=== PATIENT | female | born 1960 | race Caucasian/White ===

== ENCOUNTER 2018-10-11 19:42 | Inpatient (IN) ==
[2018-10-11] MEDS ORDERED: CARDIZEM ONE (19:45)
[2018-10-11] MEDS ORDERED: CARDIZEM IV ONE (19:48)
[2018-10-11] MEDS ORDERED: NS 1,000 ML IV ONE ×2 (20:09→22:59)
[2018-10-11] MEDS ORDERED: NS 1,000 ML ONE (20:11)
[2018-10-11 20:31] LABS: BASO# 0.01 X1000 (0.0-0.2); BASO% 0.1 % (0.0-0.8); EOS# 0.08 X1000 (0.0-0.7); EOS% 0.7 % (0.0-10.0); HEMATOCRIT 52.5 % (37.0-47.0); HEMOGLOBIN 18.3 g/dL (12.0-16.0); IMM GRAN# 0.02 X1000 (0.0-0.04); IMM GRAN% 0.2 % (0.0-0.5); LYMPH# 1.19 X1000 (1.2-3.4); LYMPH% 10.3 % (20.5-51.1); MCH 33.4 PG (27-31); MCHC 34.9 g/dL (33-37); MCV 95.8 FL (81-99); MONO# 0.57 X1000 (0.11-0.59); MONO% 4.9 % (1.7-9.3); MPV 9.2 FL (7.4-10.4); NEUT# 9.66 X1000 (1.4-6.5); NEUT% 83.8 % (42.2-75.2); PLT 385 X1000 (130-400); RBC 5.48 XMIL (4.2-5.4); RDW 12.8 % (11.5-14.5); WBC 11.53 X1000 (4.8-10.8)
[2018-10-11] MEDS ORDERED: DEMEROL IV ONE (20:38)
[2018-10-11] MEDS ORDERED: PHENERGAN IV ONE (20:38)
[2018-10-11] MEDS ORDERED: SODIUM CHLORIDE 0.9% INJ ONE (20:38)
--- NOTE | 2018-10-11 20:52 | EKG Report ---
Test Performed on : 10/11/2018 7:44:46 PM Test Reason : pain Blood Pressure : / mmHG Vent. Rate : 149 BPM Atrial Rate : 149 BPM P-R Int : 000 ms QRS Dur : 088 ms QT Int : 344 ms P-R-T Axes : 000 102 021 degrees QTc Int : 541 ms Atrial fibrillation. with rapid ventricular response. Rightward axis Nonspecific ST and T wave abnormality Abnormal ECG No previous ECGs available Unconfirmed Result
--- NOTE | 2018-10-11 21:10 | Diag Imaging Result Doc PS360 ---
EXAM: CHEST-PORTABLE HISTORY: sob TECHNIQUE: Portable chest single view COMPARISON: None. FINDINGS: The lungs are well expanded. The heart is not enlarged. Sternal wires are present. The vessels are not distended. There are no infiltrates. No effusion identified. Possible free air beneath the diaphragm versus air within the colon and stomach beneath the diaphragm. IMPRESSION: Possible free air beneath the diaphragm. A CT abdomen and pelvis is recommended. Electronically signed by Dipak David 10/11/2018 9:08 PM
[2018-10-11] MEDS ORDERED: KEFZOL 1 GM/D5W 1 GM/50 ML IVPB IV ONE (21:25)
[2018-10-11 21:46] LABS: ALBUMIN 2.6 g/dL (3.5-5.0); CALCIUM 8.2 mg/dL (8.8-10.2); POTASSIUM 3.2 mmol/L (3.5-5.1); TOTAL BILIRUBIN 0.2 mg/dL (0.20-1.00); TOTAL PROTEIN 6.3 g/dL (6.3-8.3)
[2018-10-11 23:15] LABS: BILIRUBIN URINE NEGATIVE (NEGATIVE); BLOOD URINE TRACE (NEGATIVE); CLARITY SL. CLOUDY (CLEAR); COLOR YELLOW; GLUCOSE URINE NEGATIVE (NEGATIVE); KETONE URINE TRACE mg/dL (NEGATIVE); LEUKOCYTES URINE 2+ (NEGATIVE); NITRITE URINE NEGATIVE (NEGATIVE); PROTEIN URINE TRACE mg/dL (NEGATIVE); SP GRAVITY URINE 1.015; UROBILINOGEN URINE NORMAL
[2018-10-11 23:17] LABS: URINE BACTERIA 4+ /HFP; URINE EPITHELIAL CELLS >10 /HPF (<10); URINE RBC <10 /HPF (<10); URINE SOURCE CATH
[2018-10-12] MEDS ORDERED: HURRICAINE SPRAY (DOSE) ONE (00:03)
[2018-10-12] MEDS ORDERED: ROBINUL ONE (00:06)
[2018-10-12] MEDS ORDERED: QUELICIN (DOSE) ONE (00:06)
[2018-10-12] MEDS ORDERED: SODIUM CHLORIDE 0.9% 10 ML ONE ×3 (00:06→02:42)
[2018-10-12] MEDS ORDERED: XYLOCAINE-MPF 2% ONE (00:06)
[2018-10-12] MEDS ORDERED: NORCURON ONE ×2 (00:06→02:48)
[2018-10-12] MEDS ORDERED: NEO-SYNEPHRINE ONE (00:06)
[2018-10-12] MEDS ORDERED: STERILE WATER INJ. ONE ×2 (00:06→02:48)
[2018-10-12] MEDS ORDERED: NS 50 ML ONE (00:08)
[2018-10-12] MEDS ORDERED: MEFOXIN ONE (00:08)
[2018-10-12] MEDS ORDERED: FENTANYL ONE (00:10)
[2018-10-12] MEDS ORDERED: DIPRIVAN 1% ONE (00:15)
[2018-10-12] MEDS: MEFOXIN 2 GM/NS 2 GM/50 ML IVPB IV SCH ×6 (00:20→23:48)
--- NOTE | 2018-10-12 00:32 | PROVIDER DOCUMENTATION ---
This chart was entered by Jayde Street Scribe, acting as scribe for Humza Riggs MD. HPI-Cardiac General - General Stated Complaint: CHEST PAIN Time Seen by Provider: 10/11/18 19:44 Source: patient Allergies/Adverse Reactions: Patient Allergies Allergy/AdvReac Type Severity Reaction Status Date / Time Penicillins Allergy Unknown Verified 09/30/18 22:24 Home Medications: Home Medication List Medication Instructions Recorded Confirmed Last Taken Type Hydrocodone/APAP 5 mg/325 mg 1 ea PO Q6H PRN PRN 5 Days #12 tab 10/01/18 Unknown Rx [[place]-5] - History of Present Illness-Cardiac Nature of Presenting Problem: Patient is a 58 year old female who presents to the ED via EMS with palpitations. Patient also states chest pain that radiates to lower abdomen. Patient states symptoms started today around 1000. Patient denies nausea and vomiting. Patient is covered in urine and stool on arrival to ED. Location: reports: other (generalized upper chest) Quality of Pain: reports: aching Severity in ED: mild Onset/Duration: this morning (1000) Timing: still present Context/Activities at Onset: reports: light activity Modifying Factors: improves with: nothing Palpitation Quality: fast/pounding heart beat (fast) History of arrythmia: reports: none Recent use of:: reports: no stimulants Aspirin Treatment Today: reports: 81 mg x 1 Associated Symptoms: reports: abdominal pain, shortness of breath Similar Symptoms Previously?: No Recently Seen Here or By Another Healthcare Provider: No Review of Systems - Adult - REVIEW OF SYSTEMS - ADULT Constitutional: reports: no symptoms reported Eyes: reports: no symptoms reported Ears, Nose, Mouth & Throat: reports: no symptoms reported Cardiovascular: reports: chest pain, palpitations. denies: heart murmur Respiratory: reports: shortness of breath. denies: cough, wheezing Gastrointestinal: reports: abdominal pain (generalized). denies: diarrhea, nausea, vomiting Genitourinary: reports: no symptoms reported Musculoskeletal: reports: no symptoms reported Integumentary: reports: no symptoms reported Neurological: reports: no symptoms reported Psychiatric: reports: no symptoms reported Endocrine: reports: no symptoms reported Hematologic/Lymphatic: reports: no symptoms reported Allergic/Immunologic: reports: no symptoms reported All Other Systems: Reviewed and Negative Past History - Adult - PAST MEDICAL HISTORY-ADULT Review of Records: reports: Nursing Assessment Review, Medications Reviewed, Social history reviewed & non-contributory. Major Childhood Illnesses: reports: denies history Cardiovascular: reports: denies history Respiratory: reports: denies history Gastrointestinal: reports: denies history Obstetrical/Gynecological: reports: denies history Genitourinary: reports: denies history Musculoskeletal: reports: denies history Neurological: reports: denies history Psychiatric: reports: depression Endocrine/Immune: reports: denies history Other Conditions: reports: denies history - PRIOR SURGERIES/PROCEDURES Surgical/Procedure History: reports: reviewed, not pertinent - IMMUNIZATION STATUS Childhood Immunizations: See Nurse Assessment Flu Vaccine: See Nurse Assessment - FAMILY HISTORY Family History: reviewed, not pertinent - SOCIAL HISTORY Smoking: cigarettes (former) Substance Use: denies Living Situation: family Physical Exam-General - PHYSICAL EXAM-ADULT Initial Vital Signs Reviewed: Yes - CONSTITUTIONAL General Appearance: mild distress, other (disheveled) - NECK Neck: non-tender, normal inspection - RESPIRATORY Respiratory: chest non-tender, lungs clear, normal breath sounds - CARDIOVASCULAR Cardiovascular: tachycardia - GASTROINTESTINAL (ABDOMEN) Abdominal Exam: soft, tenderness (generalized) - MUSCULOSKELETAL Extremity: normal inspection - SKIN Integumentary: normal color, normal turgor, warm/dry - NEUROLOGIC Neurologic: grossly normal - PSYCHIATRIC Psych/Mental Status: oriented x 3, disheveled Progress - PLAN OF CARE/RESULTS Progress/Plan/Lab Results: Vital Signs - 8 hr 10/11/18 19:50 Temperature 98.1 F Pulse Rate 143 H Respiratory Rate 28 H Blood Pressure 103/86 O2 Sat by Pulse Oximetry 100 Laboratory Results - last 24 hr 10/11/18 10/11/18 10/11/18 19:43 20:54 20:54 WBC 11.53 H RBC 5.48 H Hgb 18.3 H Hct 52.5 H MCV 95.8 MCH 33.4 H MCHC 34.9 RDW Std Deviation 12.8 Plt Count 385 MPV 9.2 Immature Gran % (Auto) 0.2 Neut % (Auto) 83.8 H Lymph % (Auto) 10.3 L Mcintosh % (Auto) 4.9 Eos % (Auto) 0.7 Baso % (Auto) 0.1 Immature Gran # (Auto) 0.02 Neut # (Auto) 9.66 H Lymph # (Auto) 1.19 L Mcintosh # (Auto) 0.57 Eos # (Auto) 0.08 Baso # (Auto) 0.01 Sodium 136 Potassium 3.2 L Chloride 100 Carbon Dioxide 12 L Anion Gap 24 BUN 12 Creatinine 1.0 H Estimated GFR/1.73 m2 57 BUN/Creatinine Ratio 12 Glucose 271 H Calculated Osmolality 281 Calcium 8.2 L Total Bilirubin 0.20 AST 13 ALT 7 L Alkaline Phosphatase 223 H Creatine Kinase 37 Troponin T < 0.010 Total Protein 6.3 Albumin 2.6 L Globulin 4.0 Albumin/Globulin Ratio 1.0 Urine Source Urine Color Urine Clarity Urine pH Ur Specific Honeydew Urine Protein Urine Ketones Urine Blood Urine Nitrite Urine Bilirubin Urine Urobilinogen Urine Microscopic RBC Urine WBC Urine Microscopic WBC Ur Epithelial Cells Urine Bacteria Urine Glucose 10/11/18 22:40 WBC RBC Hgb Hct MCV MCH MCHC RDW Std Deviation Plt Count MPV Immature Gran % (Auto) Neut % (Auto) Lymph % (Auto) Mcintosh % (Auto) Eos % (Auto) Baso % (Auto) Immature Gran # (Auto) Neut # (Auto) Lymph # (Auto) Mcintosh # (Auto) Eos # (Auto) Baso # (Auto) Sodium Potassium Chloride Carbon Dioxide Anion Gap BUN Creatinine Estimated GFR/1.73 m2 BUN/Creatinine Ratio Glucose Calculated Osmolality Calcium Total Bilirubin AST ALT Alkaline Phosphatase Creatine Kinase Troponin T Total Protein Albumin Globulin Albumin/Globulin Ratio Urine Source CATH Urine Color YELLOW Urine Clarity SL. CLOUDY A Urine pH 5.0 Ur Specific Honeydew 1.015 Urine Protein TRACE A Urine Ketones TRACE Urine Blood TRACE Urine Nitrite NEGATIVE Urine Bilirubin NEGATIVE Urine Urobilinogen NORMAL Urine Microscopic RBC <10 Urine WBC 2+ A Urine Microscopic WBC 10-20 A Ur Epithelial Cells >10 A Urine Bacteria 4+ Urine Glucose NEGATIVE Orders Category Date Time Status NPO Diet 10/11/18 23:41 Active CHEST-PORTABLE [RAD] Stat Exams 10/11/18 20:[address] ABD/PELVIS W/IV CONT ONLY [CT] Stat Exams 10/11/18 21:22 Taken BLOOD CULTURE [BLDCUL] Stat Lab 10/11/18 20:54 Results CBC WITH ELECTRONIC DIFF [HEME] Stat Lab 10/11/18 19:43 Completed CK PROFILE [SP CHEM] Stat Lab 10/11/18 20:54 Completed COMPREHENSIVE METABOLIC PANEL [CHEM] Stat Lab 10/11/18 20:54 Completed TROPONIN T Stat Lab 10/11/18 20:54 Completed URINE CULTURE [RM] Routine Lab 10/11/18 23:17 Ordered ua [URINALYSIS PL W/POSS RFLX CULT] [URINALYSIS] Stat Lab 10/11/18 22:40 Completed 0.9% Sodium Chloride Inj [Ns] 1,000 ml Med 10/11/18 20:11 Discontinued .ROUTE As Directed 0.9% Sodium Chloride Inj [Ns] 1,000 ml Med 10/11/18 20:09 Discontinued IV 999 mls/hr 0.9% Sodium Chloride Inj [Ns] 1,000 ml Med 10/11/18 22:59 Active IV 999 mls/hr CefOXITIN 2 GM/NS [Mefoxin 2 gm/Ns] Med 10/11/18 23:45 Ordered 2 gm in 50 ml IV Q6H Cefazolin 1 gm/D5w [Kefzol 1 gm/D5w] Med 10/11/18 21:25 Discontinued 1 gm in 50 ml IV NOW Diltiazem [Cardizem] Med 10/11/18 19:48 Discontinued 10 mg IV NOW ONE Diltiazem [Cardizem] Med 10/11/18 19:45 Discontinued 25 mg .ROUTE .STK-MED ONE Meperidine [Demerol] Med 10/11/18 20:38 Discontinued 25 mg IV NOW ONE Promethazine [Phenergan] Med 10/11/18 20:38 Discontinued 12.5 mg IV NOW ONE Sodium Chloride 0.9% Med 10/11/18 20:38 Discontinued 10 ml INJ NOW ONE EKG [EKG] Routine Ther 10/11/18 20:10 Draft Transfer/Admit Order [TRANSFER] Routine Transfer 10/11/18 23:43 Ordered Result Diagrams: 10/11/18 19:43 10/11/18 20:54 - EKG 1 Time of EKG reading by physician:: 19:44 EKG Read and Signed by:: Humza Riggs EKG Interpretation (*Must complete 3 of following elements*): Abnormal Rate: 149 Rhythm: atrial fibrillation with rapid ventricular response Comments: rightward axis; nonspecific ST and T wave abnormality. - XRAY 1 XRAY Study: Chest Impression: See EMR Report (EXAM: CHEST-PORTABLE HISTORY: sob TECHNIQUE: Portable chest single view COMPARISON: None. FINDINGS: The lungs are well expanded. The heart is not enlarged. Sternal wires are present. The vessels are not distended. There are no infiltrates. No effusion identified. Possible free air beneath the diaphragm versus air within the colon and stomach beneath the diaphragm. IMPRESSION: Possible free air beneath the diaphragm. A CT abdomen and pelvis is recommended. Electronically signed by Dipak David 10/11/2018 9:08 PM 10/11/182107 Interpreting Physician: Dipak David MD Dictated Date/Time: 10/11/182106 cc: Humza Riggs MD; None,PCP) - CT/MRI 1 CT Study: Abdomen, Pelvis Impression: See EMR Report (large pneumoperitoneum. free fluid containing oral contrast. findings compatible with acute bowel perforation. bibasilar pulmonary edema or atelectasis. infiltrate not excluded. trace left pleural effusion. low density renal lesions. 18 x 15 mm left adrenal nodule. ([facility])) - CONSULTS/PCP/HOSPITALIST Notification #1 *Consult/PCP/Hospitalist*: [facility] Time Discussed: 22:51 Reason/Comments: Dr. Riggs consulted with [facility] radiologist about patient's CT. #2 Consult: Dr. Teixeira Time Discussed: 22:55 Reason/Comments: Dr. Riggs consulted with Dr. Teixeira about patient. Consult Disposition: Will see in ED #3 Consult: Dr. Chilel Time Discussed: 23:41 Reason/Comments: Dr. Riggs consulted with Dr. Chilel about patient. Consult Disposition: Admit Departure - Departure Date of Disposition Decision: 10/11/18 Time of Disposition Decision: 23:42 DIAGNOSIS: Perforated bowel Disposition: ADMITTED INPATIENT 09 Certified Medical Emergency: Emergent Condition: Stable Referrals and Follow-Ups: None,PCP [Primary Care Provider] - - Critical Care Note This patient required my direct & personal management of CC.: No Attestation - Physician/ [facility] Attestation The physician spent face to face time with patient:: Yes Advanced Practice Provider documentation review:: Supervising physician onsite and consulted in the evaluation and care of this patient. The physician did have a face to face encounter with the patient. This chart was documented by the indicated scribe, (Jayde Street Scribe) and accurately reflects the services I performed and decisions made by me, Humza Riggs MD, as attested by the provider's signature.
[2018-10-12] MEDS ORDERED: ZOFRAN IV PRN (01:56)
[2018-10-12] MEDS ORDERED: SODIUM CHLORIDE 0.9% INJ SCH (02:15)
[2018-10-12] MEDS ORDERED: VERSED ONE ×2 (02:46→02:47)
[2018-10-12] MEDS ORDERED: DIPRIVAN 1% 0 MG/0 ML BOTTLE ONE (02:57)
[2018-10-12] MEDS ORDERED: PROTONIX IV SCH (03:00)
[2018-10-12] MEDS ORDERED: NS + KCL 20 MEQ 1,000 ML IV SCH (04:30)
[2018-10-12] MEDS: DIPRIVAN 1% 1,000 MG/100 ML BOTTLE IV SCH ×4 (04:37→21:19)
[2018-10-12] MEDS: DILAUDID IV PRN ×3 (04:41→21:16)
[2018-10-12] MEDS ORDERED: VANCOMYCIN IV PER PHARMACY MISC SCH (05:00)
[2018-10-12] MEDS ORDERED: VANCOMYCIN 2,000 MG in NS 500 ML IV ONE (05:00)
[2018-10-12] MEDS: HUMALOG SUBQ SCH ×5 (05:10→20:57)
[2018-10-12 05:11] LABS: ALLEN TEST YES; BE -12.5 mmoll (-3.0-3.0); BLOOD TYPE ARTERIAL; HCO3-(ACT) 15.2 mmoll (20.0-26.0); METHB 1.3 % (0.0-1.5); O2(CT) 23.9 mL/dL (15.0-23.0); O2HB 97.2 % (95.0-99.0); PCO2(98.6) 47 mmHg (35-45); PO2(98.6) 218 mmHg (60-100); SAMPLE BLOOD; SAO2 99.6 % (95.0-100.0); SRATE 14 BPM; THB 17.2 g/dL (11.5-17.4); TVOL 550 mL
[2018-10-12 05:13] LABS: MODALITY VENTILATOR; pH(98.6) 7.15 (7.35-7.45)
[2018-10-12 05:22] LABS: BASO# 0.01 X1000 (0.0-0.2); BASO% 0.1 % (0.0-0.8); EOS# 0.01 X1000 (0.0-0.7); EOS% 0.1 % (0.0-10.0); HEMATOCRIT 48.2 % (37.0-47.0); HEMOGLOBIN 16.6 g/dL (12.0-16.0); IMM GRAN# 0.03 X1000 (0.0-0.04); IMM GRAN% 0.2 % (0.0-0.5); LYMPH# 1.63 X1000 (1.2-3.4); LYMPH% 12.6 % (20.5-51.1); MCH 33.5 PG (27-31); MCHC 34.4 g/dL (33-37); MCV 97.4 FL (81-99); MONO# 0.81 X1000 (0.11-0.59); MONO% 6.3 % (1.7-9.3); MPV 9.2 FL (7.4-10.4); NEUT# 10.42 X1000 (1.4-6.5); NEUT% 80.7 % (42.2-75.2); PLT 227 X1000 (130-400); RBC 4.95 XMIL (4.2-5.4); RDW 12.8 % (11.5-14.5); WBC 12.91 X1000 (4.8-10.8)
[2018-10-12] MEDS ORDERED: NEO-SYNEPHRINE 50 MG in NS 250 ML IV SCH (05:30)
[2018-10-12 05:32] LABS: INR 1.25; PROTIME 16.6 Seconds (11.0-16.0)
[2018-10-12 05:33] LABS: PTT 32.4 Seconds (22.3-41.8)
--- NOTE | 2018-10-12 05:34 | GENERAL SURGERY CONSULTATION ---
DATE: 10/11/2018 REQUESTING PHYSICIAN: Emergency department. REASON FOR CONSULTATION: Consult concerning free air. HISTORY OF PRESENT ILLNESS: A 58-year-old female who presents with less than a 24-hour history of sudden onset abdominal pain. She states she has never had symptoms like this before but it started today, sudden onset. She does not have a history of acid reflux. She came to the emergency department. Had a CT scan that showed free air and a ventral hernia. She is a septic- like picture. I was asked to weigh an opinion. She is still hurting in her abdomen. PAST MEDICAL HISTORY: Includes hypertension and depression. PAST SURGICAL HISTORY: Includes hysterectomy, oophorectomy, salpingectomy, atrial septal defect repair, ankle surgery. FAMILY HISTORY: Reviewed with patient and noncontributory. SOCIAL HISTORY: Current smoker. MEDICATIONS: Currently being reviewed and compiled. ALLERGIES: Penicillin. REVIEW OF SYSTEMS: A full 10 point review of systems was obtained and negative except as specified in the HPI. PHYSICAL EXAMINATION: Vital Signs: The patient is currently afebrile. Temperature 98.1 degrees, pulse is in the 130s, respiratory rate is 28, blood pressure 103/86. General Examination: Uncomfortable female. Looks acutely sick. HEENT: Normocephalic, atraumatic. Pupils equal, round, reactive to light. Mucous membranes moist. Oropharynx benign. Neck: Supple. Trachea midline. Cardiovascular: Tachycardic. Lungs: Some coarse sounds noted. Abdomen: Peritoneal signs noted in her midline. Positive rebound. Extremities: Moves all extremities. Neurologic: Grossly intact. Skin: No signs of jaundice. Vascular: All extremities perfused. LABORATORY: White blood cell count is 11, hematocrit 52.5, platelet count 385,000. Remainder of labs reviewed. CT scan independently reviewed and radiology report reviewed. She does have what looks like free air with perforation. ASSESSMENT AND PLAN: A 58-year-old, female with free air, pneumoperitoneum, and concern for perforation. 1. Perforation. At this time, given the context of her abdominal pain of sudden onset, a CT scan with findings of concern for perforated ulcer. She does have a ventral hernia and some signs of diverticulitis, although the exact etiology is unclear. Discussed with patient the need to be admitted and transferred over to the hospital for emergent surgery. Discussed with her the risks, benefits, and alternatives of the surgery. Risks including but not limited to risk of bleeding, risk of anesthesia, risk of infection, risk of bowel injury, risk of bowel resection, risk of leak at the anastomosis, risk of ostomy all discussed. We will need to take her across down emergently. We will call the operating room crew. She likely does fit a sepsis like picture, and she is being resuscitated and started on antibiotics. 2. Multiple medical comorbidities, currently to be managed by the hospitalist service. 3. Sepsis. Please see above. cc: JuanA Teixeira MD
[2018-10-12] MEDS ORDERED: SOLU-CORTEF IV ONE (05:43)
[2018-10-12] MEDS ORDERED: LEVOPHED 8 MG in D5 1/2 NS 250 ML IV SCH (05:45)
[2018-10-12] MEDS ORDERED: SODIUM BICARBONATE 8.4% IV ONE (05:46)
--- NOTE | 2018-10-12 05:58 | OPERATIVE NOTE ---
PROCEDURE DATE: 10/12/2018 PREOPERATIVE DIAGNOSES: 1. Perforated hollow viscus. 2. Incarcerated incisional ventral hernia. POSTOPERATIVE DIAGNOSES: 1. Perforated gastric ulcer. 2. Incarcerated incisional ventral hernia. PROCEDURES PERFORMED: 1. Exploratory laparotomy. 2. Open George patch for perforated gastric ulcer. 3. Open primary repair of incarcerated incisional ventral hernia. SURGEON: Juan A Teixeira MD. ORACLE APPLICATION ARCHITECT: None. ANESTHESIA: General endotracheal. INTRAOPERATIVE FINDINGS: Perforated ulcer near the lesser curvature near the pylorus of the stomach. Multiple small hernia defects containing incarcerated omentum in a previous incision. COMPLICATIONS: None at the time of this dictation. ESTIMATED BLOOD LOSS: 10 mL. SPECIMEN REMOVED: None. DRAINS: A 10 flat drain. BRIEF HISTORY: The patient is a 58-year-old female presenting with sudden onset of pain. She had a CT scan that showed free air. She had peritoneal signs and was septic so that she would benefit from exploratory laparotomy. The risks, benefits, and alternatives were discussed. All questions were answered. DESCRIPTION OF PROCEDURE: After informed consent was obtained, the patient was brought to the operative theater, transferred to the operative table and placed in the supine position. General endotracheal anesthesia was then performed without complication. A formal time- out was then performed confirming the patient, date, and procedure with all in agreement. At that time attention was given to the abdomen. A standard midline incision was made through which we entered the abdomen. Upon entering the abdomen we released a significant amount of air and purulence from a perforated viscus. We irrigated this out. We were able to identify the perforated gastric ulcer, it did not look like malignancy. To be able to facilitate closure with a George patch we did have to open her incision entirely to free up the omentum which was incarcerated in her incisional ventral hernia. We had to take it all the way down the midline. Once we had freed up sufficiently, we brought down a piece of omentum that was well-vascularized to the perforated ulcer and performed a George patch with 3-0 silk. There was good closure over the area. Once we had done this there was no more contamination. We irrigated out the abdomen. Once we had freed up everything around the incisional hernia and reduced the incarcerated contents , we elected to close it. Given the contamination we elected to close it primarily, she had very tenuous fascia, but we did the best we could. We closed it with interrupted #1 Vicryl the entirety of the length. We then irrigated out the incision. We did place a ELSA drain tunneled from the right upper quadrant to the perforation and secured it in place. The skin was closed with stephania. The patient remained critical and septic and was transferred to the ICU. It should be noted that the sigmoid colon looked and felt normal during the procedure. cc: MD LIZANDRO Reynoso
[2018-10-12] MEDS: PROTONIX IV SCH ×2 (06:04→18:16)
[2018-10-12 06:11] LABS: LYMPHS 13 % (21-51); MONO 4 % (1-9); SEGS 83 % (42-75)
--- NOTE | 2018-10-12 06:14 | Diag Imaging Result Doc PS360 ---
EXAM: CHEST-PORTABLE HISTORY: et tube placement TECHNIQUE: Normal chest single view COMPARISON: 8:37 PM on 10/11/2018 FINDINGS: The lungs are well expanded. An endotracheal tube has been placed since the prior exam. The tip lies approximately 2 cm above the pia. The heart is not enlarged. Sternal wires are present. The vessels are not distended. Questionable midlung infiltrates.. No effusion identified. IMPRESSION: Endotracheal tube in good position. Possible developing mid lung infiltrates. Electronically signed by Dipak David 10/12/2018 6:11 AM
[2018-10-12 06:46] LABS: AGAP 20; ALB/GLOB RATIO 0.4; ALBUMIN 1.7 g/dL (3.5-5.0); ALKALINE PHOSPHATASE 155 U/L (32-104); BUN 14 mg/dL (8-22); CALCIUM 7.6 mg/dL (8.8-10.2); CHLORIDE 103 mmol/L (98-107); CK PROFILE 45 U/L (24-173); COSMO 274; CREATININE 0.9 mg/dL (0.5-0.9); ESTIMATED GFR > 60; GLUCOSE 155 mg/dL (70-104); GOT 17 U/L (10-30); GPT 7 U/L (10-36); MAGNESIUM 1.4 mg/dL (1.5-2.7); POTASSIUM 4.5 mmol/L (3.5-5.1); SODIUM 135 mmol/L (136-145); TCO2 12 mmol/L (25-35); TOTAL PROTEIN 6.1 g/dL (6.3-8.3)
--- NOTE | 2018-10-12 07:29 | HISTORY AND PHYSICAL ---
HISTORY: Ms. Munson is a 58-year-old, female, who presented to the ER at [facility] at 1942 on 10/11/2018 with complaints of palpations and chest pain radiating into her abdomen that she reports started around 10 o'clock earlier in the day. She denies any nausea or vomiting. She was noted upon arrival to be awake, alert and oriented x3. Though they did note that the patient was cool, pale, diaphoretic, and her skin was modeled as well. ER documentation also note that she arrived to the ER unkempt with extremely poor hygiene. The patient was noted to have an old hospital gown on that was covered in a brown substance which is likely stool. She was also noted to be covered in stool and urine. Upon evaluation at [facility] they did perform CBC which showed some mild leukocytosis with a white blood cell count of 11,530. Hemoglobin and hematocrit were actually slightly elevated. Potassium was slightly low at 3.2. Creatinine was 1.0. GFR 57. Glucose was 271. Troponin was less than 0.01. CK was 37. They did perform a chest x-ray which did show possible free air beneath the diaphragm. Given this they did perform a CT of abdomen and pelvis with IV contrast which showed a large pneumoperitoneum with free fluid containing oral contrast. Findings were compatible with acute bowel perforation. There was also noted some bibasilar pulmonary edema or atelectasis. Infiltrate could not be excluded. There was also trace left pleural effusion noted. She was also noted to have arrived with initial vital signs of temperature 98.1 degrees Fahrenheit, heart rate 143, respirations 28, blood pressure 103/86. Pulse oximetry 100% on room air. EKG performed did show atrial fibrillation with rapid ventricular response. She did receive 10 mg of Cardizem IV push. Dr. Teixeira did see the patient in the ER at [facility]. She was transferred to [facility] for admission and to go straight to surgery upon arrival. I did briefly get to speak to the patient in [facility]. She was cool, pale, diaphoretic. She was modeled from approximately the waist down. The patient was in a lot of pain. She was tachypneic as well. I was able to get some pertinent history of present illness and past medical and surgical history, though due to the patient's current condition she did state that she was unable to talk anymore. This will have to be obtained at a later time. She did state that she does live with a friend. He was attempting to help take care of her, though she was unable to care for herself and he was not able to provide the care that she needed. The patient did look unkempt. She had stool noted on her bilateral legs and feet. She was seen in the ER at [facility] on 10/01/2018 for a fall out of her bed with left ankle pain. She did have a displaced left trimalleolar fracture that Dr. Ramachandran did see her in the ER for. He reduced it, splinted it, and she was supposed to follow up with him outpatient though I do not think at this time that that has been done. She was noted at that time to have a stage II pressure ulcer on her sacral area and buttocks as well. Though the patient states that since she went home due to her fracture and not feeling well that she has not been able to take care of herself. She still does have a left splint noted to her left lower extremity that will have to be re-splinted due to the splinting material has been contaminated with stool. We will obtain x-ray of this after she comes out of surgery later on in the morning. REVIEW OF SYSTEMS: Unfortunately at this time a complete review of systems was unable to be performed with the patient due to her current condition. Though as previous mentioned she was reporting chest pain that was radiating into her abdomen as well as palpitations. She denied any nausea or vomiting. PAST MEDICAL HISTORY: 1. Hypertension. 2. Diabetes. 3. Depression. 4. CVA though at this time were are unsure if there are any residual deficits. PAST SURGICAL HISTORY: 1. Previous left ankle surgery. 2. Atrial septal surgical repair. 3. Cholecystectomy. 4. The patient reports that she had a few exploratory surgeries for gynecological issues. 5. Left carotid endarterectomy. SOCIAL HISTORY: The patient does smoke half a pack per day. She denied any illicit drug use. She only reported very rare occasional alcohol use. As previously mentioned, she does live with a friend. Though at this time it does appear the patient is not able to take care of herself, and her friend does have some medical issues himself and has been trying to help her as much as he can. Though I suspect the patient will need rehab placement or home health at the least upon discharge. Also Principal Software Engineer may need to get involved for evaluation of the patient's residence. It was also noted that at ER [facility] they did mentioned that she had bed bugs noted on her person. FAMILY HISTORY: Due to the patient's condition this was unable to be obtained at this time. ALLERGIES: Penicillin. HOME MEDICATIONS: Unfortunately, due to the patient's condition we are unable to reconcile her home medications at this time. Though once the patient's condition has improved and she has been extubated, we will try to obtain this or possibly get any family members or friends to try to get her medication bottles or obtain her pharmacy to see if we can obtain a list. DIAGNOSTIC DATA/LABORATORY RESULTS: 1. White blood cell count 11,530, hemoglobin 18.3, hematocrit 52.5, platelet count 385,000. 2. Sodium 136, potassium 3.2, chloride 110, bicarb 12. Anion gap 24. BUN 12, creatinine 1.0. GFR 57. Glucose 271. Calcium 8.2. 3. Liver function tests are within normal limits except for alkaline phosphatase elevated at 223, CK 37, troponin less than 0.01. Albumin is 2.6. 4. Urinalysis obtained via catheter was positive for protein, 2+ white blood cells, greater than 10 epithelial cells and 4+ bacteria. 5. Chest x-ray performed in the ER at [facility] did show possible free air beneath the diaphragm. CT of abdomen and pelvis was recommended. Though it did show that the lungs are well expanded, the heart was not enlarged. There were sternal wires present. They may be secondary to her atrial septal surgery she reported having. The vessels are not distended. There were no infiltrates and no effusion identified. 6. CT of abdomen and pelvis with IV contrast did show that she had a large peritoneum with free fluid containing oral contrast. The findings were compatible with acute bowel preparation. She also had bibasilar pulmonary edema or atelectasis. Infiltrate was not excluded. She also had trace left pleural effusion. There was a low density renal lesion and an 18 x 15 mm left renal nodule. Please see the CT report for full study details. 7. EKG performed in the ER at [facility] did show atrial fibrillation with rapid ventricular response at a rate of 149, QTc of 541. PHYSICAL EXAMINATION: VITAL SIGNS: Temperature 98.1 degrees Fahrenheit, heart rate 123, respirations 24, blood pressure 108/84. Oxygen saturation was 95% nasal cannula at 2 L. GENERAL: The patient looks unkempt. She did have stool noted to bilateral lower extremities. She also does appear to be cool, pale and diaphoretic. She was modeled from her waist down. She was tachypneic and did appear to be in quite a bit of pain per my assessment. She was awake and alert. She was able to state her name, date of , and that she was at the hospital. HEENT: Head does appear to be atraumatic, normocephalic. Pupils were equal and round, appeared to be 3 mL bilaterally. Oral mucosa was slightly dry. NECK: Supple. Trachea is midline. CARDIOVASCULAR: The patient has S1, S2 present. No murmur, gallop, or rub appreciated with a tachycardic rate that did appear to be irregular. PULMONARY: The patient has symmetrical chest expansion bilaterally. Lung lopez are clear to auscultation in bilateral full lopez. ABDOMEN: Firm, distended and tender. Bowel sounds at the time of my examination were absent, though due to the patient was going to surgery I was not able to completely auscultate for bowel sounds. EXTREMITIES: Though there was no cyanosis noted, the patient's skin was pale. She did have modeling noted to bilateral lower extremities. She was able to move all extremities. Bilateral radial pulses were 2+. Right pedal pulse was 1+. The patient does have a splint noted to her left lower extremity. She did have capillary refill that was 4 seconds noted in bilateral toes. INTEGUMENTARY: The patient's skin was cool, pale. She was diaphoretic. She did have modeling noted from waist down. NEUROLOGIC: The patient is awake, alert and oriented to person and place. She was able to move all extremities. At this time, she does not appear to have any focal neurological deficits noted though I was not able to complete a full neurologic exam due to the patient's condition for which she was going for emergency surgery. IMPRESSION AND PLAN: 1. Pneumoperitoneum which on the CT was noted to be possibly compatible with acute bowel preparation. Dr. Teixeira did give me a verbal report that the patient did have a perforated gastric ulcer. She will be placed with antibiotic coverage of vancomycin, Mefoxin and fluconazole. Blood cultures have been obtained. We will provide gentle hydration with normal saline. We have added 20 of KCl to this given the patient was mildly hyperkalemic prior to surgery. We will defer further management of this to the surgical team. 2. Mechanical ventilation. The patient did arrive from surgery to the ICU intubated. We will order an ABG. She will have a repeat chest x-ray. We will place a Pulmonology consult and will await their evaluation and further recommendations. 3. Atrial fibrillation with rapid ventricular response. As far as we know, the patient does not have a history of this though she has had only one previous visit here, which was an ER visit approximately a week ago. She did receive 2 g Cardizem IV push at ER [facility], though she is still tachycardic at this time. Her most recent EKG does show sinus tachycardia with premature supraventricular complexes at a rate of 147, however the patient had just arrived from surgery. She does have paralytics on board. We are going to try to treat her pain and get her propofol sedation started and we will closely monitor her heart rate for improvement. We have placed a series of cardiac enzymes. She will have an echocardiogram as well as a repeat EKG later on in the morning. We will repeat her electrolytes, BMP and magnesium in the morning. We have placed a consult with Cardiology and we will await their evaluation and further recommendations for management. 3. History of a recent left trimalleolar fracture. This was on 10/01/2018. Dr. Ramachandran did come in and reduce her fracture. She was supposed to follow up with him outpatient though I do not think the patient has done this at this time. We will repeat a left ankle x-ray in the morning due to the patient did report she had been up trying to move around and had been unable to care for herself. Also her splint on her left lower extremity will likely need to be re-splinted due to it being soiled with stool. We have placed a consult with Dr. Ramachandran given that he saw her in the ER recently on 10/01/2018. We will await their evaluation and further recommendations for management. 4. Diabetes mellitus. We have placed the patient with q.4 hour finger-stick blood sugars. We will cover her with Lispro insulin for low-dose sliding scale and continue to monitor this closely. 5. History of hypertension. Based on the patient's blood pressure, it is within normal limits. She has been borderline hypertensive at times. We will continue to monitor this given that she will be receiving pain and sedation medications. We can add on a pressor if needed. 6. Possible acute kidney injury. The patient's creatinine in September 2018 on her ER visit was 0.6, though at this time it is 1.0. Though her GFR is 157. She has been fluid resuscitated. Hopefully this will improve her renal function. We will continue to monitor this closely. We will avoid nephrotoxic medications and renally dose medications if necessary. 7. Possible urinary tract infection. The patient did have 2+ white blood cells and 4+ bacteria noted in her urine, though as I mentioned the patient was unkempt. It did have greater than 10 epithelial cells. This could be secondary to contamination. We will try to obtain a repeat urinalysis if possible. 8. DVT prophylaxis. She will be provided with heparin 5000 units subcutaneous q.8 hours to start at 12 o'clock later on today. 9. GI prophylaxis. She will be provided with Protonix 40 mg IV q.12 hours. We have also placed consults for Principal Software Engineer and Case Management. As mentioned above in HPI, the patient did arrive unkempt. She was covered in urine and stool. She reported that she does live with a friend and he had been trying to help her take care of herself, though at this time she is unable to do so. She may likely need rehab or home health upon discharge at the least. Her residence may also need to be evaluated due to she was reported to have possible bed bugs noted on her person in the ER at [facility]. She has been placed in ICU for close monitoring. She will have continuous cardiac telemetry. We will do vital signs per ICU protocol. She is n.p.o. at this time. She will be on strict bedrest. We will do strict intake and output. We will repeat CBC, CMP, magnesium and lactate in the morning. Further orders and recommendations pending hospital course, diagnostic studies, and physician evaluation. CRITICAL CARE TIME: Approximately 70 minutes. Dictated by DIETER Peters for Sae Chilel MD cc: MD Juan A Rubio MD Justin Daigre, MD
--- NOTE | 2018-10-12 07:41 | CONSULTATION ---
DATE OF CONSULTATION: 10/12/2018 REASON FOR CONSULTATION: Ankle fracture. HISTORY OF PRESENT ILLNESS: Ms. Munson is a 58-year-old female, who on 10/01/2018, ended up having a fall and had a pretty bad ankle fracture with some subluxation. She was splinted and was scheduled to follow up with me in clinic. Unfortunately, she did not show for her clinic appointment. Here recently, she came into the ER with a lot of abdominal pain. She was found to have free air on her CT scan and Dr. Teixeira took her out and washed out her abdomen from a perforated ulcer. Orthopedics has been consulted to evaluate and treat this left ankle. PAST MEDICAL HISTORY: Hypertension, depression, and diabetes. PAST SURGICAL HISTORY: Hysterectomy, atrial septal defect repair. SOCIAL HISTORY: She is smoker. MEDICATIONS: Per the medical record. ALLERGIES: Allergies are to penicillin. REVIEW OF SYSTEMS: Positive for sepsis, perforated ulcer, left ankle fracture. All other systems are essentially negative. PHYSICAL EXAMINATION: General: The patient is intubated and sedated. This morning, heart rate is high. Head and neck: Appears normocephalic and atraumatic. Respirations: She is breathing on the ventilator. Cardiovascular: She has a regular pulse, but she is tachycardic. Abdomen: She has had a previous surgery. Bandages are clean, dry, and intact. Left lower extremity: She has a splint to the left ankle. The toes do have a lot of dirt and grime on them. RADIOGRAPHS: Previous radiographs were reviewed, which shows a left tibial pilon fracture and distal fibula fracture. CT scan was reviewed, which does show the fractures really well. On the CT scan, the ankle is fairly well reduced. There was a little bit of posterior subluxation. ASSESSMENT: 1. Left tibial pilon fracture. 2. Distal fibular fracture. PLAN: Unfortunately, Ms. Munson is septic from her perforated ulcer and is not able to undergo orthopedic hardware placement at this point. When she has gone through her treatment for her for sepsis and we feel like that has resolved, we can come back and more than likely do a tibiotalocalcaneal fusion on her. Will change her splint today, and we will continue to follow. cc: MD Juan A Nielson MD
[2018-10-12] MEDS ORDERED: NS 250 ML ONE (07:55)
--- NOTE | 2018-10-12 08:07 | Diag Imaging Result Doc PS360 ---
EXAM: CT ABD/PELVIS W/IV CONT ONLY INDICATION: f/u from xray TECHNIQUE: This exam was performed using automated exposure control, adjustment of mA or kV according to patient size, and/or use of iterative reconstruction technique. COMPARISON: None. FINDINGS: There is subsegmental atelectasis at the lung bases and there are ill-defined groundglass opacities suggesting edema or hypoventilatory changes. There is trace pleural effusion at the left lung base. There is a large volume of extraluminal free gas in the abdomen indicating visceral perforation. There is a prominent ventral abdominal wall hernia around the umbilicus that contains significant amount of gas. There is only a small loop of small bowel at the mouth of the hernia. There is high attenuating fluid that is layering in the pelvis, left paracolic gutter, and also within the ventral abdominal wall hernial sac. The exact source of the air and contrast is unclear. There is wall thickening multiple loops of small bowel in the left abdomen suggesting enteritis. There is mild mural thickening involving the descending and proximal sigmoid colon suggesting colitis. There is thickening of the left adrenal gland with a 1.8 mm nodule, statistically most likely an adenoma. There are a few small low dense foci involving the kidneys that probably represent small cysts, perhaps with internal proteinaceous debris. Urinary bladder is unremarkable. There has been a prior cholecystectomy. There is mild intrahepatic periportal edema. The liver is unremarkable, otherwise. There is small volume free fluid tracking around the liver and spleen. The spleen and pancreas are unremarkable. IMPRESSION: 1.Large pneumoperitoneum with layering hyperdense fluid that appears to represent contrast, probably oral contrast indicating visceral perforation. The exact site of the perforation is unclear. 2.Several thickened loops of small bowel that are mainly in the left abdomen suggesting enteritis and mild thickening of part of the sigmoid colon suggesting colitis. 3.Prominent ventral abdominal wall hernia that contains gas as well as layering hyperdense material indicating contrast but only a short loop of decompressed small bowel at the mouth hernia. 4.Other external/nonacute findings detailed above. Electronically signed by Lito Hewitt 10/12/2018 8:05 AM
--- NOTE | 2018-10-12 09:04 | EKG Report ---
Test Performed on : 10/12/2018 07:23:56 AM Test Reason : A-Fib with RVR Blood Pressure : / mmHG Vent. Rate : 147 BPM Atrial Rate : 150 BPM P-R Int : 000 ms QRS Dur : 092 ms QT Int : 344 ms P-R-T Axes : 000 099 009 degrees QTc Int : 538 ms Atrial fibrillation. with rapid ventricular response. Rightward axis Incomplete right bundle branch block Nonspecific T wave abnormality Abnormal ECG When compared with ECG of 12-OCT-2018 04:05, (Unconfirmed) No significant change was found Confirmed by Kathryn MOJICA, Vipul Banks ([id number]) on 10/12/2018 7:26:50 PM
--- NOTE | 2018-10-12 09:17 | Diag Imaging Result Doc PS360 ---
EXAM: CHEST-PORTABLE HISTORY: PICC line TECHNIQUE: Portable chest single view COMPARISON: 4:09 AM FINDINGS: A left-sided PICC line has been placed since the prior exam. The tip overlies the distal superior vena cava near the right atrium. No other interval change. IMPRESSION: Left-sided PICC line in good position. Electronically signed by Dipak David 10/12/2018 9:15 AM
--- NOTE | 2018-10-12 09:19 | Diag Imaging Result Doc PS360 ---
EXAM: ANKLE COMPLETE LEFT HISTORY: Recent left ankle fracture,re-evaluation TECHNIQUE: Left ankle, three views COMPARISON: 10/01/2018 there is an external cast FINDINGS: About the ankle and proximal foot. There is evidence of fractures to the distal tibia and fibula. Improved positioning of the distal tibial fracture compared to the prior study. There is also improved alignment to the lateral malleolus. Long-standing arthritic changes are found at the ankle. IMPRESSION: Improved alignment to the distal tibia and fibula fractures. Electronically signed by Dipak David 10/12/2018 9:17 AM
[2018-10-12] MEDS: DIFLUCAN 400 MG/NS 400 MG/200 ML IVPB IV SCH ×2 (09:31→09:41)
[2018-10-12] MEDS: SOLU-MEDROL IV SCH ×3 (09:52→23:46)
[2018-10-12] MEDS: CARDIZEM 100 MG/NS 100 MG/100 ML IVPB IV SCH ×2 (10:05→18:21)
[2018-10-12] MEDS ORDERED: NS 500 ML ONE (10:52)
--- NOTE | 2018-10-12 11:16 | CARDIOLOGY CONSULTATION ---
DATE: 10/12/2018 REASON FOR CONSULTATION: Concern for atrial fibrillation. CHIEF COMPLAINT ON PRESENTATION: Abdominal pain. HISTORY OF PRESENT ILLNESS: Ms. Munson is a 58-year-old female with a history of diabetes, CVA and hypertension, who presented with abdominal pain yesterday. She was found to have what was felt to be a perforated viscus. This was identified on abdomen and pelvis CT, showing a large pneumoperitoneum with layering hyperdense fluid. She was taken to the operating room last night for an exploratory laparotomy and was found to have a perforated gastric ulcer. She had a George patch for the perforated ulcer and primary repair of an incarcerated incisional ventral hernia. She has since returned to the ICU. She is on the ventilator, sedated, and not responsive to any sort of physical or verbal stimuli. PAST MEDICAL HISTORY: Significant for: 1. Hypertension. 2. Diabetes. 3. CVA. SOCIAL HISTORY: Per chart review, she is a smoker. No illicit drug use. Occasional alcohol use. She apparently lives with a friend. Unsure exactly what is the patient's social situation as she is quite disheveled and apparently had some bedbugs. FAMILY HISTORY: Unable to be obtained. REVIEW OF SYSTEMS: Unable to be obtained secondary to the patient's intubated status. PHYSICAL EXAMINATION: Vital Signs: The patient is afebrile. Her heart rate currently is in the 120s and appears to be sinus tachycardia in etiology. Her blood pressure most recently was 133/90. General: She is in no acute distress. Again, she is sedated, on the ventilator. HEENT: Oropharynx moist. She has poor dentition. Eye examination shows pink conjunctivae and white sclerae. Neck: Examination shows no obvious thyromegaly or thyroid tenderness. Cardiovascular: She is in a tachycardic and regular rhythm. She has no obvious murmurs. She has no S3. She has no lower extremity edema. She has cool distal extremities. Difficult to palpate pulses. She has a very weak left femoral pulse. Chest: Mechanical breath sounds heard throughout all lung lopez. Abdomen: Minimal bowel sounds were auscultated. Somewhat protuberant. Binder is in place. Skin: Cool distal extremities. Warm elsewhere. She is quite disheveled home. She has very poor hygiene diffusely. Psychiatric and Neurological: Exams unable to be performed secondary to the patient's current intubated and sedated status. PERTINENT DATA: CT scan results as above. Chest x-ray results from last night showed ET tube in good position with mid lung infiltrates noted. No mention of the site of those. Chest x-ray this morning showed good position of the PICC line. She had an EKG performed yesterday at 1944. I believe this shows sinus tachycardia, rate of 149 beats per minute. She does have some evidence of PACs, but she does appear to have P-waves present. Her subsequent EKG on 10/12/2018 again shows what appears to be a sinus mechanism. LABORATORY DATA: White count 12.9, hematocrit 48, platelet count 227,000. INR is 1.2. ABG shows a pH of 7.15, pCO2 47, PO2 218. She has a lactate of 3.1. Sodium 135, potassium 4.5, BUN 14, creatinine 0.9. Magnesium level is 1.4. Cardiac enzymes are negative. Albumin level is 1.7. ASSESSMENT: Ms. Munson is a 58-year-old female with a perforated gastric ulcer who appears to be septic and showing signs of poor perfusion. PLAN: We are assessing her bladder pressure to assess for any signs of abdominal compartment syndrome. She may require some institution of pressors. I do not see any clear evidence of atrial fibrillation on her EKGs, and her telemetry currently shows sinus rhythm. We will monitor for now. She does have an echo pending, which I think is reasonable. We will follow up on the results of this. cc: Luis Sánchez MD
[2018-10-12] MEDS: HEPARIN SUBQ SCH ×2 (12:15→19:40)
--- NOTE | 2018-10-12 14:43 | ECHO REPORT ---
ORDER DATE: 10/12/2018 ECHOCARDIOGRAPHIC MEASUREMENTS: 1. Interventricular septum 1.3. 2. Left ventricular posterior wall 1.3. 3. Diastolic diameter 3.8. 4. Left atrium 3.4. 5. Aorta 3.0. SUMMARY: 1. Normal left ventricular cavity size. Concentric left ventricular hypertrophy. Estimated ejection fraction of 55%. Technically suboptimal study. Poor acoustic window. 2. Aortic valve leaflets were trileaflet. 3. Tricuspid valve was normal. 4. Pulmonic valve was normal. 5. Mitral valve leaflets revealed significant calcification around the posterior mitral leaflet; this appeared mobile measuring 0.9 cm2. This is likely to represent calcification in the posterior mitral leaflet. Cannot rule out vegetation. Would recommend clinical correlation. 6. There is no aortic stenosis. There is trace aortic regurgitation. 7. There is trace mitral regurgitation. 8. There is mild tricuspid regurgitation. Peak velocity across the tricuspid valve was less than 2 m/sec. 9. There is no pericardial effusion. CONCLUSIONS: There was significant calcification noted in the posterior mitral leaflet. In some views, it appeared to be a mobile mass measuring 0.9 cm2. Cannot rule out vegetation. It is likely to represent a calcification. Would recommend clinical correlation. cc: Aamir Richards MD
--- NOTE | 2018-10-12 22:19 | CONSULTATION ---
DATE OF CONSULTATION: 10/12/2018 REQUESTING PROVIDER: DIETER Peters. REASON FOR CONSULTATION: Ventilator management. HISTORY OF PRESENT ILLNESS: This is a 58-year-old female with a medical history of hypertension, diabetes, depression, and CVA. She presented to the [facility] with palpitations and chest pain radiating to lower abdomen early last night. In the ER, chest x-ray revealed possible free gas beneath the diaphragm versus air within the colon and stomach beneath the diaphragm. A CT abdomen and pelvis with contrast showed large pneumoperitoneum with layering hyperdense fluid containing oral contrast indicating visceral perforation. There is also subsegmental atelectasis at the lung bases, pulmonary edema and trace left pleural effusion. The patient was transferred to [facility] and upon arrival went straight to the operating room for an exploratory laparotomy by Dr. Teixeira and was found to have a perforated gastric ulcer. She had George patch for the perforated ulcer and primary repair of an incarcerated incisional ventral hernia. She was transferred to the ICU after surgery. At the time of my exam, the patient is still on the ventilator. She opens her eyes randomly, but remained unresponsive to any verbal or physical stimuli without sedation. There is no family at bedside. PAST MEDICAL HISTORY: 1. Hypertension. 2. Diabetes. 3. Depression. 4. CVA. PAST SURGICAL HISTORY: 1. Hysterectomy. 2. Oophorectomy. 3. Salpingectomy. 4. Atrioseptal defect repair. 5. Left ankle surgery. 6. Cholecystectomy. 7. Left carotid endarterectomy. SOCIAL HISTORY: Per the echart, she lives with a friend. She smokes half a pack per day. She has very rare occasional alcohol use. She has no illicit drug use. FAMILY HISTORY: Unable to be obtained. ALLERGIES: Penicillins. REVIEW OF SYSTEMS: unable to be obtained. PHYSICAL EXAMINATION: Vital Signs: Blood pressure 125/78, pulse 142, respiration rate 25, oxygen saturation 99% on AC mechanical ventilator with FiO2 100%, tidal volume 550, PEEP 5.0. General: The patient appears pale. She has some dried brown or black stool-like dirt on her feet, toes and the splint to her left ankle. HEENT: Trachea midline. ET tube in place. Respiratory: Mechanical breathing sounds throughout all lung lopez, otherwise no significant findings. Cardiovascular: Sinus tachycardia with regular rate and rhythm. Gastrointestinal: The patient has a dry and clean abdominal binder in place. Extremities: No pedal edema noted. No cyanosis. No clubbing. Neurological: Unresponsive without sedation. LAB DATA: White blood cell 12.91, hemoglobin 16.6, hematocrit 48.2, platelet 227,000. Sodium 135, potassium 4.5, chloride 103, carbon dioxide 12, BUN 14, creatinine 0.9, glucose 155. Plasma lactate 3.3. ABG, pH 7.15, pCO2 47, PO2 218, HC03 15.2, base excess -12.5, oxyhemoglobin 97.2. IMAGING DATA: Chest x-ray shows stable chest with questionable mid lung infiltrates. ASSESSMENT: This is a 58-year-old female with a medical history of hypertension, diabetes, depression and cerebrovascular accident. She has been diagnosed with perforated gastric ulcer. She underwent exploratory laparotomy, open George patch for perforated gastric ulcer and open primary repair of incarcerated incisional ventral hernia last night. 1. Perforated gastric ulcer. 2. Sepsis. 3. Shock. PLAN: 1. Continue AC mechanical ventilator and start weaning trials when appropriate. 2. Daily ABG, chest x-ray, CBC and BMP. 3. Continue antibiotics, steroids, and bronchodilators as prescribed. 4. Consider pressors if needed. 5. Continue GI and DVT prophylaxis. Thank you for the courtesy of this consult. Dictated by DIETER Lundy for Elida Bocanegra MD cc: DIETER Lundy MD [facility]
[2018-10-12] MEDS ORDERED: VANCOMYCIN 1,700 MG in NS 250 ML IV SCH (23:00)
--- NOTE | 2018-10-12 23:33 | PROGRESS NOTE ---
DATE: 10/12/2018 Patient now status post surgery for peritonitis. She was found to have a perforated gastric ulcer. Remains intubated but off sedation and arousing quite well at the time of my exam. Has continued to require some pressors to support her blood pressure, but is nearly weaned off at this point with quite good blood pressure and suspect she will be able to be weaned off pressors shortly. Holding antihypertensives currently given shock. Patient's heart rate remains somewhat tachycardic and irregular, so we are starting diltiazem and we will see what Cardiology says. Left foot remains in cast. Abdominal binder in place. Diffuse scattered rhonchi on lung exam, but otherwise lungs are clear. We will replete potassium, wean pressors and hopefully be able to extubate later today.
[2018-10-13] MEDS: HUMALOG SUBQ SCH ×6 (01:00→21:50)
[2018-10-13] MEDS: DILAUDID IV PRN ×3 (03:00→15:19)
[2018-10-13] MEDS: CARDIZEM 100 MG/NS 100 MG/100 ML IVPB IV SCH (04:00)
[2018-10-13] MEDS: HEPARIN SUBQ SCH ×3 (04:05→20:49)
[2018-10-13] MEDS ORDERED: NS 1,000 ML IV SCH (04:15)
[2018-10-13 04:33] LABS: ALLEN TEST YES; BE -12.1 mmoll (-3.0-3.0); BLOOD TYPE ARTERIAL; HCO3-(ACT) 15.3 mmoll (20.0-26.0); METHB 1.1 % (0.0-1.5); O2(CT) 17.9 mL/dL (15.0-23.0); PCO2(98.6) 36 mmHg (35-45); PO2(98.6) 67 mmHg (60-100); SAMPLE BLOOD; SRATE 14 BPM; TVOL 550 mL; pH(98.6) 7.22 (7.35-7.45)
[2018-10-13 04:34] LABS: MODALITY VENTILATOR
[2018-10-13 05:01] LABS: BASO# 0.01 X1000 (0.0-0.2); EOS# 0.72 X1000 (0.0-0.7); EOS% 3.6 % (0.0-10.0); HEMATOCRIT 39.2 % (37.0-47.0); HEMOGLOBIN 13.3 g/dL (12.0-16.0); IMM GRAN# 1.35 X1000 (0.0-0.04); IMM GRAN% 6.7 % (0.0-0.5); LYMPH# 1.16 X1000 (1.2-3.4); LYMPH% 5.7 % (20.5-51.1); MCHC 33.9 g/dL (33-37); MCV 100.3 FL (81-99); MONO# 0.61 X1000 (0.11-0.59); MPV 9.6 FL (7.4-10.4); NEUT# 16.43 X1000 (1.4-6.5); PLT 134 X1000 (130-400); RBC 3.91 XMIL (4.2-5.4); RDW 12.8 % (11.5-14.5); WBC 20.28 X1000 (4.8-10.8)
[2018-10-13 05:19] LABS: CALCIUM 7.2 mg/dL (8.8-10.2); CREATININE 2.1 mg/dL (0.5-0.9); POTASSIUM 4.5 mmol/L (3.5-5.1)
[2018-10-13] MEDS: DIPRIVAN 1% 1,000 MG/100 ML BOTTLE IV SCH ×5 (05:19→16:38)
[2018-10-13] MEDS: PROTONIX IV SCH ×2 (05:47→17:38)
[2018-10-13] MEDS: MEFOXIN 2 GM/NS 2 GM/50 ML IVPB IV SCH (05:47)
[2018-10-13] MEDS ORDERED: DIFLUCAN 400 MG/NS 400 MG/200 ML IVPB IV SCH (06:00)
--- NOTE | 2018-10-13 06:43 | Diag Imaging Result Doc PS360 ---
EXAM: CHEST-1 VIEW HISTORY: SOB TECHNIQUE: Portable chest COMPARISON: 10/12/2018 FINDINGS: Endotracheal and nasogastric tubes remain in good position. The lungs are well expanded. The heart is not enlarged. Sternal wires are present. The vessels are not distended. There are infiltrates in the lower left lung. No effusion identified. IMPRESSION: No interval improvement Electronically signed by Dipak David 10/13/2018 6:41 AM
[2018-10-13 07:16] LABS: BANDS 3 % (0-1); LYMPHS 9 % (21-51); MONO 8 % (1-9); SEGS 80 % (42-75)
--- NOTE | 2018-10-13 08:19 | PROGRESS NOTE ---
DATE: 10/13/2018 SUBJECTIVE: Ms. Munson still is on the ventilator, and still on some Levophed as well. OBJECTIVE: Left lower extremity exam, new splint was applied yesterday. It looks clean, dry and intact. She does have a little bit of a purple discoloration to the great toe. She is perfusing that toe great. ASSESSMENT: 1. Left tibial pilon fracture. 2. Left distal fibula fracture. PLAN: Ideally, Ms. Munson will need a tibial talocalcaneal fusion to stabilize this left lower extremity. Unfortunately, since she is septic and still on the ventilator, timing is going to be an issue. We will follow the primary teams lead on timing for surgical intervention, and orthopedics will continue to follow. She will be nonweightbearing left lower extremity. cc: Colt Ramachandran MD
--- NOTE | 2018-10-13 08:23 | GENERAL SURGERY PROGRESS NOTE ---
DATE: 10/13/2018 SUBJECTIVE: Patient seems to be doing about the same. Her urine output has been down, but she is off her pressors. She is still on Solu-Medrol. OBJECTIVE: Vital Signs: Patient's heart rates in the 1 teens and blood pressure 118 systolic. General: Sedated on the ventilator. Cardiovascular: Tachycardia, but the patient is on Cardizem and looks regular at this point. Lungs: Referred airway noises. Abdomen: Soft. Abdominal binder in place. ELSA drain with 125 output serosanguineous. NG tube has gastric contents in it. The Gordon-Bailey drain and NG tube did not look similar in output. LABORATORY: White blood count 20, hematocrit 39, and platelet count 134,000. ABG shows a pH of 7.22, a CO2 of 36, O2 of 67, bicarb 15, and base deficit of 12.1. Remainder of labs reviewed. ASSESSMENT AND PLAN: A 58-year-old status post exploratory laparotomy washout from perforated gastric ulcer, open George patch and repair of incarcerated incisional hernia. 1. Postoperative state. At this time, patient still remains critical. We need to watch her urine output. Her creatinine has gone up to 2.1, and if it does not improve, may need to consider Nephrology consult. Otherwise, continue resuscitation process, keep her on her steroids for right now, and monitor her closely. Keep her on antibiotics and watch for any kind of leak at her ulcer. She may need GI study on postoperative day #5. cc: Juan A Teixeira MD
[2018-10-13] MEDS: SOLU-MEDROL IV SCH ×3 (08:30→23:21)
[2018-10-13] MEDS: NS 1,000 ML IV SCH ×2 (09:14→12:59)
[2018-10-13] MEDS: OFIRMEV 1000 MG/ISOTONIC SOLN 1,000 MG/100 ML BOTTLE IV PRN ×2 (09:35→17:45)
[2018-10-13] MEDS ORDERED: MAXIPIME 2 GM in NS 100 ML IV ONE (09:44)
[2018-10-13] MEDS ORDERED: CARDIZEM 100 MG in NS 80 ML IV SCH (10:30)
--- NOTE | 2018-10-13 12:16 | Diag Imaging Result Doc PS360 ---
US RENAL 2 (RETROPER) COMPLETE - 10/13/2018 INDICATION: miguel ángel/arf TECHNIQUE: COMPARISON: 10/11/2018 FINDINGS: The exam is extraordinarily challenging due to the patient's condition and surgical bandages. There is probably hydronephrosis on the right side. There is also a small right renal cyst measuring about 1 cm. The left kidney is barely visible. Renal sizes are both grossly normal. There is a Charlton catheter in the urinary bladder. IMPRESSION: Probable right hydronephrosis. Electronically signed by Rashad Craft 10/13/2018 12:13 PM
[2018-10-13] MEDS ORDERED: LASIX IV ONE (15:37)
--- NOTE | 2018-10-13 15:52 | Diag Imaging Result Doc PS360 ---
EXAM: CHEST-PORTABLE 10/13/2018 HISTORY: repeat TECHNIQUE: AP portable at 1544 COMMENT: There is an endotracheal tube with its tip at thoracic inlet. There is an NG tube with its tip below the diaphragm. There is alveolar opacity in both lower lung lopez particularly in the left lower lobe. This appears on balance essentially unchanged since the previous study of this date at 0519. IMPRESSION: Bilateral lower lobe bronchopneumonia worse on the left than the right. Electronically signed by Tariq Sandra 10/13/2018 3:50 PM
--- NOTE | 2018-10-13 16:18 | PROGRESS NOTE ---
DATE: 10/13/2018 INTERVAL HISTORY: The patient remains intubated and sedated. Successfully weaned off pressors, but multiple fevers overnight and this morning. She has been slightly tachycardic. No other acute events overnight. REVIEW OF SYSTEMS: Review of systems unable to be obtained secondary to patient's mental status and intubation. LABORATORY DATA: White count 20.2, hemoglobin 13.3, hematocrit 39.2, platelets 134,000. ABG with pH 7.2, pCO2 36, PO2 67, O2 saturation 93%, lactate 2.8, on 60% FiO2 on ventilator. Sodium 137, potassium 4.5, chloride 106, bicarb 14, BUN 30, creatinine 2.1, glucose 135. Plasma lactate 3.3, unchanged from previous. Urine culture growing gram-negative dianna. Initial blood cultures no growth after 48 hours. Repeat blood cultures pending. DIAGNOSTIC STUDIES: Chest x-ray with continued left lower lung infiltrates. Renal ultrasound with probable right hydronephrosis without clear cause despite Charlton catheter in the bladder. OBJECTIVE: Vital Signs: T-max 101.7 degrees, pulse 102, respirations 17, blood pressure 122/60, O2 saturation 92% on ventilator. General: No acute distress, intubated and sedated, on the ventilator. HEENT: Normocephalic, atraumatic. Orally intubated. No cervical adenopathy. Cardiovascular: Minimally tachycardic and irregular. No murmurs noted. Pulmonary: Slight bibasilar crackles, left greater than right. Otherwise, fairly clear to auscultation. Abdomen: Abdominal binder remains in place. Surgical incision bandaged. Extremities: Peripheral pulses decreased, but intact. No clubbing or cyanosis. Left foot in cast. Neurologic: Exam limited by patient intubation and sedation. Pupils equal, round, and reactive to light. No facial asymmetry. No clear focal deficits. Skin: No new rashes or lesions noted. ASSESSMENT AND PLAN: 1. Septic shock. The patient required pressors for approximately 24 hours after surgery for peritonitis and perforated gastric ulcer. No longer requiring pressors, but significant fevers overnight and this morning. May be related to peritonitis, but patient also with pneumonia on chest x-ray. Will repeat blood cultures and change Mefoxin to cefepime for better pulmonary coverage. Will dose cefepime 2 g initially and then 1 g daily based on her kidney function. Continue vancomycin. Pulmonology following. If fevers continue despite change in antibiotics, then will consult Infectious Disease and likely change vancomycin to Zyvox versus adding Flagyl for anaerobic coverage. 2. Pneumonia. Continue antibiotics and repeating blood cultures as above. Pulmonology following. 3. Acute kidney injury, sudden increase in creatinine this morning. Suspect it is related to her overall sepsis picture. Increased intravenous fluids. Renal ultrasound technically difficult because of patient's recent surgery and abdominal binder, but did show possible right hydronephrosis. Given acute illness and some question of possible hydronephrosis with no clear cause, will ask Nephrology to see. Continue strict intake and output. 4. Hypertension. Holding home blood pressure medications given recent hypotension. 5. Atrial fibrillation with rapid ventricular response. Still very slightly tachycardic, but remains at goal of less than 110 on Cardizem. Continue monitoring closely. 6. Diabetes mellitus. Overall excellent control on current sliding scale. Monitor closely once steroids begin to be weaned as she may be prone to hypoglycemia. She remains NPO at that time. 7. Hypokalemia, improved status post repletion. Continue to monitor. 8. Lactic acidosis, likely due to sepsis and multiple infections with peritonitis and pneumonia as above. Increased intravenous fluids and change in antibiotics as above. Continue to monitor. 9. Tobacco abuse. Will legal counsel on smoking cessation when patient extubated. 10. Leukocytosis. May be due to high-dose steroids being given, but concern for worsening infection as above. Change in antibiotics as above. 11. Recent left foot fracture. Foot remains in cast. Possible surgery once acute illness resolved. 12. Deep vein thrombosis prophylaxis. Sequential compression devices. DISPOSITION AND TIME SPENT: The patient remains critically ill in the ICU, intubated. Total critical care time spent immediately available to the patient, examining the patient, reviewing labs, and making medical decisions approximately 40 minutes.
[2018-10-13] MEDS ORDERED: NS 500 ML ONE (16:53)
[2018-10-13 17:30] LABS: URINE SOURCE CATH
[2018-10-13 17:34] LABS: BILIRUBIN URINE NEGATIVE (NEGATIVE); BLOOD URINE SMALL (NEGATIVE); COLOR ORANGE; GLUCOSE URINE NEGATIVE (NEGATIVE); KETONE URINE 10 mg/dL (NEGATIVE); LEUKOCYTES URINE NEGATIVE (NEGATIVE); NITRITE URINE NEGATIVE (NEGATIVE); PH URINE 5.5; PROTEIN URINE 50 mg/dL (NEGATIVE); TURBIDITY URINE TURBID (CLEAR); UROBILINOGEN URINE NORMAL (NORMAL)
[2018-10-13 17:39] LABS: UR EPITHELIAL CELLS <10 /HPF (<10); URINE BACTERIA NEGATIVE /HPF; URINE RBC <10 /HPF (<10)
[2018-10-13 17:48] LABS: URINE CASTS NONE SEEN; URINE CRYSTALS CA OXALATE PRESENT; URINE SMALL ROUND CELLS TRANS PRESENT; URINE YEAST NONE SEEN
[2018-10-13 17:53] LABS: UR PROT RANDOM 169.3 mg/dL
[2018-10-13] MEDS ORDERED: ATIVAN IV PRN (20:34)
[2018-10-13] MEDS ORDERED: ATIVAN 20 MG in NS 190 ML IV SCH (20:45)
[2018-10-14] MEDS ORDERED: MORPHINE IV ONE (01:09)
[2018-10-14] MEDS ORDERED: MORPHINE IV PRN (01:09)
[2018-10-14] MEDS ORDERED: MORPHINE ONE (01:20)
[2018-10-14 02:51] VITALS: BP 70/33
[2018-10-14] MEDS ORDERED: MAXIPIME 1 GM in NS 50 ML IV SCH (09:00)
[2018-10-15] MEDS ORDERED: VANCOMYCIN 1,450 MG in NS 250 ML IV SCH (09:00)
== END 2018-10-14 03:38 | disposition expired | DRG 853 ==
LOC: P.ED 19:42 → OR 10-12 00:41 → ICU 10-12 04:02
PROVIDERS: ATTEND Internal Medicine
CPT/HCPCS: 36569; 51702; 71010; 71045; 73610; 74177; 76770; 80048; 80053; 81001; 82550; 82570; 82805; 82948; 83605; 83735; 83880; 84156; 84300; 84484; 85025; 85610; 85730; 86850; 86900; 86901; 87040; 87077; 87088; 87186; 87205; 93005; 93010; 93306; 94002; 94003; 94761; 96361; 96365; 96367; 96375; 99285; A9270; C9113; J0131; J0330; J0690; J0692; J0694; J1170; J1450; J1644; J1720; J1815; J1940; J2175; J2250; J2270; J2370; J2405; J2550; J2930; J3010; J3370; J3480; J7030; J7040; J7050; Q9967; S0164; XXXXX